=== PATIENT | female | born 2000 | race Caucasian/White ===

== ENCOUNTER 2018-03-17 00:24 | Inpatient (IN) | payer OTHER ==
[~2018-03-17] VITALS: Ht 160 cm; Wt 54.1 kg
--- NOTE | 2018-03-17 00:34 | PD ---
HPI Chief Complaint: Neck trauma Time Seen by Provider: 00:31 Travel History International Travel<30 days: No Contact w/Intl Traveler<30days: No Traveled to known affect area: No History of Present Illness HPI 17-year-old female transferred from [facility], accepted by the trauma service by Dr. Romo, for self-inflicted neck wound. According to the records the patient is a 17-year-old homeless female with history of bipolar disorder who presented to their facility after she cut herself in the left neck with a razor blade as well as took an overdose of [address] angiogram of the neck did not show any major vascular injuries, however does have extended area of gas throughout the fascial planes. The neck wound was repaired at their facility. Patient tells me that she wanted to kill herself. She is denying any physical complaints. She does not provide any further history. Extensive amount of records were sent from [facility] and were reviewed. Tylenol level was 14. Salicylate level was negative. [facility] Social History Tobacco Use: Yes Allergies-Medications (Allergen,Severity, Reaction): Coded Allergies: No Allergy Information Available (Unverified , 03/17/18) Reported Meds & Prescriptions Reported Meds & Active Scripts Active Reported Mariposa (Drospirenone-Ethinyl Estradiol) 3-0.02 Mg Tab 1 Tab PO DAILY Tamsulosin (Tamsulosin HCl) 0.4 Mg Cap 0.4 Mg HS Review of Systems Except as stated in HPI: all other systems reviewed are Neg Physical Exam Narrative GENERAL: Well-developed, thin, awake, keeps eyes closed, no apparent distress. SKIN: Focused skin assessment warm/dry. Left mid/lateral neck wound with several sutures in place. No surrounding warmth or erythema. No crepitus. HEAD: Atraumatic. Normocephalic. EYES: Pupils equal and round. No scleral icterus. No injection or drainage. ENT: No nasal bleeding or discharge. Mucous membranes pink and moist. NECK: Trachea midline. No JVD. Skin exam as above. CARDIOVASCULAR: Regular rate and rhythm. No murmur appreciated. RESPIRATORY: No accessory muscle use. Clear to auscultation. Breath sounds equal bilaterally. GASTROINTESTINAL: Abdomen soft, non-tender, nondistended. MUSCULOSKELETAL: No obvious deformities. No clubbing. No cyanosis. No edema. NEUROLOGICAL: Awake and alert. No obvious cranial nerve deficits. Motor grossly within normal limits. Normal speech. PSYCHIATRIC: Flat affect, poor eye contact, depressed mood. Data Data Last Documented VS Vital Signs Date Time Temp Pulse Resp B/P (MAP) Pulse Ox O2 Delivery O2 Flow Rate FiO2 03/17/18 05:44 70 20 101/50 (67) 99 Room Air 03/17/18 00:38 97.6 Orders Orders Complete Blood Count With Diff (03/17/18 00:35) Comprehensive Metabolic Panel (03/17/18 00:35) Beta Hcg (Quant/Titer) (03/17/18 00:35) Psych Screen (03/17/18 00:35) Drug Screen, Random Urine (03/17/18 00:35) Alcohol (Ethanol) (03/17/18 00:35) Salicylates (Aspirin) (03/17/18 00:35) Tylenol (Acetaminophen) (03/17/18 00:35) Cefazolin 2 Gm Premix (Ancef 2 Gm Premix (03/17/18 00:45) Diet Regular Basic (03/17/18 Breakfast) Admit Order (Ed Use Only) (03/17/18 ) Labs Laboratory Tests Test 03/17/18 00:45 White Blood Count 8.0 TH/MM3 Red Blood Count 3.97 MIL/MM3 Hemoglobin 11.7 GM/DL Hematocrit 33.8 % Mean Corpuscular Volume 85.1 FL Mean Corpuscular Hemoglobin 29.5 PG Mean Corpuscular Hemoglobin Concent 34.6 % Red Cell Distribution Width 12.9 % Platelet Count 160 TH/MM3 Mean Platelet Volume 8.2 FL Neutrophils (%) (Auto) 25.1 % Lymphocytes (%) (Auto) 62.3 % Monocytes (%) (Auto) 10.5 % Eosinophils (%) (Auto) 1.4 % Basophils (%) (Auto) 0.7 % Neutrophils # (Auto) 2.0 TH/MM3 Lymphocytes # (Auto) 5.0 TH/MM3 Monocytes # (Auto) 0.8 TH/MM3 Eosinophils # (Auto) 0.1 TH/MM3 Basophils # (Auto) 0.1 TH/MM3 CBC Comment AUTO DIFF Differential Total Cells Counted 100 Neutrophils % (Manual) 29 % Band Neutrophils % 1 % Lymphocytes % 38 % Monocytes % 11 % Neutrophils # (Manual) 2.4 TH/MM3 Differential Comment FINAL DIFF MANUAL Atypical Lymphocytes 21 % Platelet Estimate NORMAL Platelet Morphology Comment NORMAL Red Cell Morphology Comment NORMAL Blood Urea Nitrogen 9 MG/DL Creatinine 0.93 MG/DL Random Glucose 75 MG/DL Total Protein 7.1 GM/DL Albumin 2.9 GM/DL Calcium Level 7.7 MG/DL Alkaline Phosphatase 242 U/L Aspartate Amino Transf (AST/SGOT) 73 U/L Alanine Aminotransferase (ALT/SGPT) 87 U/L Total Bilirubin 0.6 MG/DL Sodium Level 142 MEQ/L Potassium Level 3.4 MEQ/L Chloride Level 108 MEQ/L Carbon Dioxide Level 22.8 MEQ/L Anion Gap 11 MEQ/L Estimat Glomerular Filtration Rate 78 ML/MIN Thyroid Stimulating Hormone 3rd Gen 10.100 uIU/ML Human Chorionic Gonadotropin, Quant LESS THAN 1 MIU/ML Salicylates Level 2.1 MG/DL Urine Opiates Screen NEG Acetaminophen Level LESS THAN 2.0 MCG/ML Urine Barbiturates Screen NEG Urine Amphetamines Screen NEG Urine Benzodiazepines Screen POS Urine Cocaine Screen NEG Urine Cannabinoids Screen NEG Ethyl Alcohol Level LESS THAN 3 MG/DL MDM Medical Decision Making Medical Screen Exam Complete: Yes Emergency Medical Condition: Yes Differential Diagnosis Self-inflicted neck wound, depression, suicidal ideation, coingestion, benzodiazepine overdose Narrative Course Vital signs reviewed. Shortly after the patient arrived to the emergency department I discussed the case with our on-call trauma surgeon Dr. Romo who accepted transfer of the patient. States that the patient can be cleared from a trauma standpoint to be admitted to psychiatry. I will do my own medical clearance with basic labs here in the emergency department. Labs reviewed and are remarkable for slight lymphocytosis and slight LFT elevation with AST 73, ALT 87. Patient tells me that she does not use IV drugs. Transaminitis can be followed up as an outpatient. Urine drug screen is positive for benzodiazepines. Tylenol, alcohol, and salicylate levels are negative. The patient is medically cleared for psychiatric evaluation and disposition by them. Diagnosis Primary Impression: Medical clearance for psychiatric admission Additional Impressions: Intentional self-harm Benzodiazepine overdose Qualified Codes: T42.4X2A - Poisoning by benzodiazepines, intentional self- harm, initial encounter Chris Gramajo MD March 17, 2018 00:34
[2018-03-17 00:38] VITALS: BP 99/58; PULSE 63; RESP 16; TEMP 97.6; O2SAT 99
[2018-03-17] MEDS ORDERED: ceFAZolin 2 GM PREMIX 50 ML IV ONE (00:45)
[2018-03-17 01:10] LABS: BASOPHIL # 0.1 TH/MM3 (0-0.2); BASOPHIL % 0.7 % (0.0-2.0); EOSINOPHIL # 0.1 TH/MM3 (0-0.4); EOSINOPHIL % 1.4 % (0.0-4.0); HEMATOCRIT 33.8 % (35.0-46.0); HEMOGLOBIN 11.7 GM/DL (11.6-15.3); LYMPH % 62.3 % (9.0-44.0); MEAN CELL VOLUME 85.1 FL (80.0-100.0); MEAN CORPUSCULAR HEMOGLOBIN 29.5 PG (27.0-34.0); MEAN CORPUSCULAR HGB CONC 34.6 % (32.0-36.0); MEAN PLATELET VOLUME 8.2 FL (7.0-11.0); MONO % 10.5 % (0.0-8.0); MONOCYTE # 0.8 TH/MM3 (0-0.9); NEUT % 25.1 % (16.0-70.0); PLATELET COUNT 160 TH/MM3 (150-450); RED BLOOD COUNT 3.97 MIL/MM3 (4.00-5.30); RED CELL DISTRIBUTION WIDTH 12.9 % (11.6-17.2)
[2018-03-17] MEDS ORDERED: LEVO50TA4 PO (01:20)
[2018-03-17] MEDS ORDERED: TAMS0.4C4 (01:20)
[2018-03-17] MEDS ORDERED: VENL75TA (01:20)
[2018-03-17] MEDS ORDERED: TOPI25TA7 PO (01:20)
[2018-03-17] MEDS ORDERED: DROS1TAB5 PO (01:20)
[2018-03-17] MEDS ORDERED: BUSP1TAB PO (01:20)
[2018-03-17 01:43] LABS: ACETAMINOPHEN LESS THAN 2.0 MCG/ML (10.0-30.0); ALBUMIN 2.9 GM/DL (3.4-5.0); ALKALINE PHOSPHATASE 242 U/L (45-117); ALT (GPT) 87 U/L (9-42); AST (GOT) 73 U/L (16-38); BICARBONATE 22.8 MEQ/L (21.0-32.0); BLOOD UREA NITROGEN 9 MG/DL (7-18); CALCIUM 7.7 MG/DL (8.5-10.1); CHLORIDE 108 MEQ/L (98-107); CREATININE 0.93 MG/DL (0.50-1.00); GLOMERULAR FILTRATION RATE 78 ML/MIN (>89); GLUCOSE,RANDOM 75 MG/DL (74-106); SODIUM (NA) 142 MEQ/L (136-145); TOTAL BILIRUBIN ADULT 0.6 MG/DL (0.2-1.0); TOTAL PROTEIN 7.1 GM/DL (6.4-8.2)
[2018-03-17 01:59] VITALS: BP 96/60; PULSE 63; RESP 16; O2SAT 100
[2018-03-17 02:00] LABS: ATYPICAL LYMPHOCYTES 21 % (0-0); BANDS 1 % (0-6); LYMPHOCYTES 38 % (9-44); MONOCYTES 11 % (0-8); NEUTROPHIL # MANUAL DIFF 2.4 TH/MM3 (1.8-7.7); POLYS (SEG NEUTROPHILS) 29 % (16-70)
[2018-03-17] MEDS ORDERED: DROS1TAB6 PO (03:31)
[2018-03-17 05:44] VITALS: BP 101/50; PULSE 70; RESP 20; O2SAT 99
--- NOTE | 2018-03-17 09:07 | HHI.HP ---
Provisional Diagnosis Admission Date 03/17/2018 [place] I. 1. Adjustment disorder with mixed disturbance of emotions and conduct Rule out some degree of depressive diathesis [place] II. 1. Borderline personality disorder Certification of Person's Competence To Provide Express and Informed Consent I have personally examined Kane Yañez , a person being served at [facility] on, March 17, 2018 08:49. Express and informed consent means consent voluntarily given in writing, by a competent person, after sufficient explanation and disclosure of the subject matter involved to enable the person to make a knowing and willful decision without any element of force, fraud, deceit, duress, or other form of constraint or coercion. This person is 18 years of age or older, is not now known to be incompetent to consent to treatment with a guardian advocate, and does not have a health care surrogate or proxy currently making medical treatment decisions. I have found this person to be one of the following: [] Competent to provide express and informed consent, as defined above, for voluntary admission to this facility and is competent to provide express and informed consent for treatment. He/she has the consistent capacity to make well reasoned, willful, and knowing decisions concerning his or her medical or mental health treatment. The person fully and consistently understands the purpose of the admission for examination/placement and is fully capable of personally exercising all rights assured [place] Incompetent to provide express and informed consent to voluntary admission, and this is incompetent to provide express and informed consent to treatment. The person must be transferred to involuntary status and a petition for a guardian advocate filed with the Circuit Court. [X] Refusing to provide express and informed consent to voluntary admission but is competent to provide express and informed consent for treatment. The person must be discharged or transferred to involuntary status. Form shall be completed within 24 hours of a person's arrival at the receiving facility and filed in the clinical record of each person: 1. Admitted on a voluntary basis 2. Permitted to provide express and informed consent to his/her own treatment 3. Allowed to transfer from involuntary to voluntary status 4. Prior to permitting a person to consent to his or her own treatment after having been previously found incompetent to consent to treatment. History of Present Illness Capacity: Has Capacity (To consent for medication/treatment) Psych Chief Complaint: Suicide attempt HPI Ms. Yañez is a 17-year-old female with a reported history of PTSD, anxiety, depression and borderline personality disorder who was accepted by the trauma service in transfer from [facility] under a [facility] act following a suicide attempt by cutting her throat and overdosing on Klonopin. Patient has been cleared by the trauma service. She was presented to me for admission overnight, but I was concerned about the possible long-acting sedative effects of the Klonopin and requested poison control be contacted. Per nurse, ED provider "chrised" the idea of contacting poison control. I have called poison control myself this morning, spoke with nurse specialist Kimber. Patient is known to poison control from initial presentation at [facility]. Poison control advises that as long as patient is awake and alert for 4 hours she is clear from their standpoint. Documentation from outside hospital reviewed. Reviewing the electronic medical record, I note this is patient's first visit to [facility]. Patient seen and examined with nurse. Chart reviewed. Case discussed with nurse. On my examination this morning, the patient is somewhat somnolent but arousable. She is able to participate in a fairly extensive psychiatric evaluation. She tells me that she cut herself and overdosed with suicidal intent because "I kept reaching out to people and nobody would fucking help me. " She reports that she has been planning suicide for weeks. She is displeased to have survived her attempt and reports ongoing suicidal ideation now, albeit without any specific plan. No reported urge to hurt self on an inpatient unit. She endorses ongoing low mood. No hypomanic or manic symptoms. Denies audiovisual hallucinations. She does have a significant trauma history and endorses some hyperarousal and nightmares. Very prominent cluster B personality traits noted. Remainder of the psychiatric ROS is negative. No acute physical complaints. Past psychiatric history: The patient reports a history of PTSD, anxiety and depression as well as borderline personality disorder. She is not currently under the care of a psychiatrist. She was psychiatrically admitted 4 months ago at [facility]. She has a history of previous suicidal overdoses as well as a history of nonsuicidal self-injurious behavior, namely cutting. She has never done any sort of psychotherapy, no history of DBT treatment. Family history: The patient reports a family history of depression. She denies a family history of suicide. Chemical dependency history: Patient reports a history of cocaine abuse. She does not report any current substance abuse and is in Narcotics Anonymous. Social history: Patient is homeless. She is single with no children. She has a grade 11 education. She has no income. She denies any access to guns or firearms. Review of Systems Except as stated in HPI: all other systems reviewed are Neg Past Family Social History Coded Allergies: No Allergy Information Available (Unverified , 03/17/18) Past Medical History No reported past medical history. See EMR. Reported Medications Drospirenone-Ethinyl Estradiol (Mariposa) 3-0.02 Mg Tab, 1 TAB PO DAILY, TAB 0 Refills 03/17/18 Tamsulosin (Tamsulosin) 0.4 Mg Cap, 0.4 MG HS for Manage Prostate Problems, #30 CAP 0 Refills 03/17/18 Buspirone (Buspirone) 7.5 Mg Tab, 7.5 MG PO BID for Anxiety, TAB 0 Refills 03/17/18 Venlafaxine (Effexor) 75 Mg Tab, 75 MG DAILY, #30 TAB 0 Refills 03/17/18 Levothyroxine (Levothyroxine) 50 Mcg Tab, 50 MCG PO DAILY for Thyroid, #30 TAB 0 Refills 03/17/18 Drospirenone-Ethinyl Estradiol (Drospirenone-Ethinyl Estradiol) 3-0.02 Mg Tab, 1 TAB PO DAILY for Control, #1 PACK 0 Refills 03/17/18 Topiramate (Topiramate) 25 Mg Tab, 25 MG PO BID for Control Seizures, #60 TAB 0 Refills 03/17/18 Medication list from outside hospital reviewed. Patient's Strengths (min. 2) In a monitored setting. Verbally fluent. Physical Exam Physical examination completed by ED provider. On my examination today, the patient appears to be in no acute physical distress. No motor abnormalities noted. Labs and vital signs reviewed: Vital Signs Vital Signs Date Time Temp Pulse Resp B/P (MAP) Pulse Ox O2 Delivery O2 Flow Rate FiO2 03/17/18 05:44 70 20 101/50 (67) 99 Room Air 03/17/18 00:38 97.6 I/O 03/17/18 03/17/18 03/18/18 08:00 16:00 00:00 Intake Total 100 ml Balance 100 ml Lab Results Test 03/17/18 00:45 White Blood Count 8.0 TH/MM3 Red Blood Count 3.97 MIL/MM3 Hemoglobin 11.7 GM/DL Hematocrit 33.8 % Mean Corpuscular Volume 85.1 FL Mean Corpuscular Hemoglobin 29.5 PG Mean Corpuscular Hemoglobin Concent 34.6 % Red Cell Distribution Width 12.9 % Platelet Count 160 TH/MM3 Mean Platelet Volume 8.2 FL Neutrophils (%) (Auto) 25.1 % Lymphocytes (%) (Auto) 62.3 % Monocytes (%) (Auto) 10.5 % Eosinophils (%) (Auto) 1.4 % Basophils (%) (Auto) 0.7 % Neutrophils # (Auto) 2.0 TH/MM3 Lymphocytes # (Auto) 5.0 TH/MM3 Monocytes # (Auto) 0.8 TH/MM3 Eosinophils # (Auto) 0.1 TH/MM3 Basophils # (Auto) 0.1 TH/MM3 CBC Comment AUTO DIFF Differential Total Cells Counted 100 Neutrophils % (Manual) 29 % Band Neutrophils % 1 % Lymphocytes % 38 % Monocytes % 11 % Neutrophils # (Manual) 2.4 TH/MM3 Differential Comment FINAL DIFF MANUAL Atypical Lymphocytes 21 % Platelet Estimate NORMAL Platelet Morphology Comment NORMAL Red Cell Morphology Comment NORMAL Blood Urea Nitrogen 9 MG/DL Creatinine 0.93 MG/DL Random Glucose 75 MG/DL Total Protein 7.1 GM/DL Albumin 2.9 GM/DL Calcium Level 7.7 MG/DL Alkaline Phosphatase 242 U/L Aspartate Amino Transf (AST/SGOT) 73 U/L Alanine Aminotransferase (ALT/SGPT) 87 U/L Total Bilirubin 0.6 MG/DL Sodium Level 142 MEQ/L Potassium Level 3.4 MEQ/L Chloride Level 108 MEQ/L Carbon Dioxide Level 22.8 MEQ/L Anion Gap 11 MEQ/L Estimat Glomerular Filtration Rate 78 ML/MIN Human Chorionic Gonadotropin, Quant LESS THAN 1 MIU/ML Salicylates Level 2.1 MG/DL Urine Opiates Screen NEG Acetaminophen Level LESS THAN 2.0 MCG/ML Urine Barbiturates Screen NEG Urine Amphetamines Screen NEG Urine Benzodiazepines Screen POS Urine Cocaine Screen NEG Urine Cannabinoids Screen NEG Ethyl Alcohol Level LESS THAN 3 MG/DL Transaminitis, hypokalemia and decreased GFR noted. Urine toxicology positive for benzodiazepines. Beta hCG at outside hospital was negative. Mental Status Examination Appearance: Appropriate Consciousness: Asleep (But arousable) Orientation: Person, Place (At least) Motor Activity: Other (No motor abnormalities noted. No signs of withdrawal noted.) Speech: Unremarkable Language: Adequate Fund of Knowledge: Adequate Attention and Concentration: Adequate Memory: Unremarkable (Grossly intact on clinical exam) Mood: Other (Depressed) Affect: Other (Restricted) Thought Process & Associations: Intact Thought Content: Appropriate Hallucination Type: None Delusion Type: None Suicidal Ideation: Yes Suicidal Plan: No Suicidal Intention: No (No reported urge to hurt self on an inpatient unit) Homicidal Ideation: No Homicidal Plan: No Homicidal Intention: No Insight: Poor Judgment: Poor Assessment & Plan Problem List: (1) Adjustment disorder with mixed disturbance of emotions and conduct ICD Codes: F43.25 - Adjustment disorder with mixed disturbance of emotions and conduct (2) Borderline personality disorder ICD Codes: F60.3 - Borderline personality disorder Assessment & Plan 17-year-old female with psychiatric history as detailed above who presents in transfer from outside hospital under a Pay[place] act following suicide attempts. On my examination today, the patient remains quite dysphoric and endorses ongoing suicidal ideation without plan at this point. Patient has a history of previous suicidal attempts and this coupled with her current dysphoria and borderline personality style elevated her ongoing risk for self-harm. The patient requires psychiatric admission at this time for safety, observation and stabilization. Admit inpatient to camera room. Patient is declining to consent for voluntary admission. Involuntary status. I have completed first opinion. Consult for second opinion. Patient retains capacity to consent for medications. I have left orders that the patient is not to be admitted to the psychiatric unit until she is awake and alert for 4 hours as recommended by Poison control. I will titrate patient's Effexor to 225mg daily to target dysphoria. Continue BuSpar and Topamax as ordered. CIWA with Ativan for any benzodiazepine withdrawal. Seizure precautions. Atarax as needed for anxiety. Benadryl as needed for sleep. Hospitalist consult to follow up on patient's presenting suicide attempt. Vitals every shift. Counselor to see. Collateral information. Disposition planning. Estimated length of stay: 5-7 days. Discharge Planning Pending further observation Request HC Surrog/Guard Advoc?: No Pascual Patel MD March 17, 2018 09:07
[2018-03-17] MEDS ORDERED: LORazepam 2 MG/ML VIAL IV PUSH PRN ×4 (09:15)
[2018-03-17] MEDS ORDERED: FLUMAZENIL 0.5 MG/5 ML VIAL IV PUSH PRN (09:15)
[2018-03-17] MEDS ORDERED: ACETAMINOPHEN 325 MG TAB PO PRN (09:15)
[2018-03-17] MEDS ORDERED: LORazepam 2 MG TAB PO PRN (09:15)
[2018-03-17] MEDS ORDERED: ALUMINUM/MAGNESIUM/SIMETH 30 ML CUP PO PRN (09:15)
[2018-03-17] MEDS ORDERED: MAGNESIUM HYDROXIDE SUSP 30 ML CUP PO PRN (09:15)
[2018-03-17] MEDS ORDERED: LORazepam 1 MG TAB PO PRN (09:15)
[2018-03-17] MEDS ORDERED: hydrOXYzine HCL 50 MG TAB PO PRN (09:15)
[2018-03-17 11:52] VITALS: BP 107/55
[2018-03-17 12:00] VITALS: BP 82/49; PULSE 90; RESP 17; TEMP 99.1; O2SAT 98
--- NOTE | 2018-03-17 13:52 | PD.CONS ---
HPI Service [facility] Hospitalists Consult Requested By Dr. Patel Reason for Consult S/P Klonopin OD and cutting neck. Transaminitis. Assist with medical management. Primary Care Physician Non-Staff Diagnoses: (1) Laceration of neck (2) Elevated LFTs (3) Benzodiazepine overdose (4) Intentional self-harm (5) Borderline personality disorder (6) Adjustment disorder with mixed disturbance of emotions and conduct History of Present Illness The patient is a 17 year old female admitted to inpatient psychiatry following Klonopin overdose and attempted suicide by cutting her own neck. Hospitalist consultation was requested for medical management. She denies headache, vision changes, cough, dyspnea. She reports pain at the laceration site on her neck. She states "I still want to ". Review of Systems Constitutional: DENIES: Fever, Chills, Night Sweats Eyes: DENIES: Blurred vision, Vision loss Ears, nose, mouth, throat: DENIES: Hearing loss Respiratory: DENIES: Cough, Wheezing, Sputum production, Shortness of breath Cardiovascular: DENIES: Chest pain, Palpitations, Dyspnea on Exertion, Lower Extremity Edema Gastrointestinal: DENIES: Abdominal pain, Constipation, Diarrhea, Nausea, Vomiting Genitourinary: DENIES: Urinary frequency, Urinary incontinence, Urgency, Hematuria, Dysuria, Nocturia Musculoskeletal: DENIES: Joint pain, Muscle aches Integumentary: DENIES: Pruritus, Rash Hematologic/lymphatic: DENIES: Bruising Neurologic: DENIES: Headache Psychiatric: COMPLAINS OF: Depression, Suicidal Ideation Past Family Social History Allergies: Coded Allergies: No Allergy Information Available (Unverified , 03/17/18) Past Medical History Depression Hypothyroidism Past Surgical History Thyroidectomy Reported Medications Tamsulosin (Tamsulosin HCl) 0.4 Mg Cap 0.4 Mg HS Buspirone (Buspirone HCl) 7.5 Mg Tab 7.5 Mg PO BID Effexor (Venlafaxine HCl) 75 Mg Tab 75 Mg DAILY Levothyroxine (Levothyroxine Sodium) 50 Mcg Tab 50 Mcg PO DAILY Drospirenone-Ethinyl Estradiol 3-0.02 Mg Tab 1 Tab PO DAILY Topiramate 25 Mg Tab 25 Mg PO BID Family History Mental health issues Social History History of crack cocaine abuse. States that she is trying to get clean. Rare alcohol use. Physical Exam Vital Signs Vital Signs Date Time Temp Pulse Resp B/P (MAP) Pulse Ox O2 Delivery O2 Flow Rate FiO2 03/17/18 12:00 99.1 90 17 82/49 (60) 98 03/17/18 11:52 97 18 107/55 (72) 99 03/17/18 05:44 70 20 101/50 (67) 99 Room Air 03/17/18 01:59 63 16 96/60 (72) 100 Room Air 03/17/18 01:26 63 16 03/17/18 00:38 97.6 63 16 99/58 (72) 99 Physical Exam Examined in the presence of WILSON Francis. GENERAL: This is a well-nourished, well-developed patient, in no apparent distress. SKIN: No rashes, ecchymoses or lesions. Cool and dry. Laceration on left lateral neck with sutures in place. Multiple linear scars on upper extremities. HEAD: Atraumatic. Normocephalic. No temporal or scalp tenderness. CARDIOVASCULAR: Regular rate and rhythm without murmurs, gallops, or rubs. RESPIRATORY: Clear to auscultation. Breath sounds equal bilaterally. No wheezes , rales, or rhonchi. GASTROINTESTINAL: Abdomen soft, non-tender, nondistended. No hepato-splenomegaly , or palpable masses. No guarding. MUSCULOSKELETAL: Extremities without clubbing, cyanosis, or edema. No joint tenderness, effusion, or edema noted. No calf tenderness. NEUROLOGICAL: Awake and alert. Normal speech. No focal deficits noted. Laboratory Laboratory Tests Test 03/17/18 00:45 White Blood Count 8.0 Red Blood Count 3.97 Hemoglobin 11.7 Hematocrit 33.8 Mean Corpuscular Volume 85.1 Mean Corpuscular Hemoglobin 29.5 Mean Corpuscular Hemoglobin Concent 34.6 Red Cell Distribution Width 12.9 Platelet Count 160 Mean Platelet Volume 8.2 Neutrophils (%) (Auto) 25.1 Lymphocytes (%) (Auto) 62.3 Monocytes (%) (Auto) 10.5 Eosinophils (%) (Auto) 1.4 Basophils (%) (Auto) 0.7 Neutrophils # (Auto) 2.0 Lymphocytes # (Auto) 5.0 Monocytes # (Auto) 0.8 Eosinophils # (Auto) 0.1 Basophils # (Auto) 0.1 CBC Comment AUTO DIFF Differential Total Cells Counted 100 Neutrophils % (Manual) 29 Band Neutrophils % 1 Lymphocytes % 38 Monocytes % 11 Neutrophils # (Manual) 2.4 Differential Comment FINAL DIFF MANUAL Atypical Lymphocytes 21 Platelet Estimate NORMAL Platelet Morphology Comment NORMAL Red Cell Morphology Comment NORMAL Blood Urea Nitrogen 9 Creatinine 0.93 Random Glucose 75 Total Protein 7.1 Albumin 2.9 Calcium Level 7.7 Alkaline Phosphatase 242 Aspartate Amino Transf (AST/SGOT) 73 Alanine Aminotransferase (ALT/SGPT) 87 Total Bilirubin 0.6 Sodium Level 142 Potassium Level 3.4 Chloride Level 108 Carbon Dioxide Level 22.8 Anion Gap 11 Estimat Glomerular Filtration Rate 78 Thyroid Stimulating Hormone 3rd Gen 10.100 Human Chorionic Gonadotropin, Quant LESS THAN 1 Salicylates Level 2.1 Urine Opiates Screen NEG Acetaminophen Level LESS THAN 2.0 Urine Barbiturates Screen NEG Urine Amphetamines Screen NEG Urine Benzodiazepines Screen POS Urine Cocaine Screen NEG Urine Cannabinoids Screen NEG Ethyl Alcohol Level LESS THAN 3 Result Diagram: 03/17/18 0045 03/17/18 0045 Assessment and Plan Assessment and Plan 1. Benzodiazepine overdose: Stable. No symptoms of overdose at this time. 2. Suicidal ideation/attempt: Neck wound sutured. Management per psychiatry. 3. Hypothyroidism: Patient states that she has been taking Synthroid 150mcg daily as prescribed. TSH is elevated. Increase dose of Synthroid. Recheck TSH in 4-6 weeks as outpatient. [facility] will sign off. Reconsult if needed. Problem Qualifiers (1) Benzodiazepine overdose: Qualified Codes: T42.4X2A - Poisoning by benzodiazepines, intentional self-harm , initial encounter Vitaliy Langley MD March 17, 2018 13:52
[2018-03-17] MEDS: TAMSULOSIN HCL 0.4 MG CAP PO SCH (20:35)
[2018-03-17] MEDS: TOPIRAMATE 100 MG TAB PO SCH (20:35)
[2018-03-17] MEDS: busPIRone HCL 10 MG TAB PO SCH (20:35)
[2018-03-17] MEDS ORDERED: diphenhydrAMINE HCL 50 MG CAP PO PRN (21:00)
[2018-03-18] MEDS ORDERED: LEVOTHYROXINE SODIUM 150 MCG TAB PO SCH ×2 (06:00)
[2018-03-18] MEDS: LEVOTHYROXINE SODIUM 75 MCG TAB PO SCH (06:10)
[2018-03-18] MEDS: LEVOTHYROXINE SODIUM 100 MCG TAB PO SCH (06:10)
[2018-03-18 06:13] VITALS: BP 91/45; PULSE 67; RESP 16; TEMP 98.1; O2SAT 99
[2018-03-18 08:43] LABS: ALBUMIN 2.7 GM/DL (3.4-5.0); AST (GOT) 66 U/L (16-38); BICARBONATE 24.7 MEQ/L (21.0-32.0); BLOOD UREA NITROGEN 16 MG/DL (7-18); CALCIUM 7.9 MG/DL (8.5-10.1); CHLORIDE 108 MEQ/L (98-107); CREATININE 0.92 MG/DL (0.50-1.00); GLOMERULAR FILTRATION RATE 79 ML/MIN (>89); GLUCOSE,RANDOM 91 MG/DL (74-106); SODIUM (NA) 140 MEQ/L (136-145)
[2018-03-18 08:44] LABS: CHOLESTEROL 194 MG/DL (120-200)
[2018-03-18 08:47] LABS: ALKALINE PHOSPHATASE 256 U/L (45-117); ALT (GPT) 71 U/L (9-42); CHOLESTEROL/ HDL RATIO 4.89 RATIO; HDL CHOLESTEROL 39.6 MG/DL (40.0-60.0); LDL CHOLESTEROL 104 MG/DL (0-99); TOTAL BILIRUBIN ADULT 0.7 MG/DL (0.2-1.0); TOTAL PROTEIN 6.7 GM/DL (6.4-8.2); TRIGLYCERIDES 251 MG/DL (42-150)
[2018-03-18] MEDS: TOPIRAMATE 100 MG TAB PO SCH ×2 (08:51→20:34)
[2018-03-18] MEDS: busPIRone HCL 10 MG TAB PO SCH ×2 (08:51→20:34)
[2018-03-18] MEDS: VENLAFAXINE HCL XR 75 MG CAP PO SCH (08:52)
[2018-03-18] MEDS: NICOTINE 21 MG/24 HR PATCH T-DERMAL SCH (08:54)
[2018-03-18] MEDS: REMOVE OLD PATCH T-DERMAL SCH (08:54)
[2018-03-18] MEDS ORDERED: [UNRECOGNIZED DRUG - OTHER] PO SCH (09:00)
[2018-03-18] MEDS ORDERED: DROSPIRENONE ETHINYL ESTRADIOL PO SCH (09:00)
[2018-03-18] MEDS ORDERED: diphenhydrAMINE HCL 25 MG CAP PO PRN (14:15)
[2018-03-18 16:21] LABS: HEMOGLOBIN A1C 4.6 % (4.3-6.0)
[2018-03-18 17:58] VITALS: BP 119/56; PULSE 84; RESP 18; TEMP 98; O2SAT 100
[2018-03-18] MEDS: TAMSULOSIN HCL 0.4 MG CAP PO SCH (20:34)
--- NOTE | 2018-03-18 22:11 | PD.PSY.CON ---
Provisional Diagnosis Admission Date March 17, 2018 at 08:49 [place] I. 1. Adjustment disorder with mixed disturbance of emotions and conduct Rule out some degree of depressive diathesis [place] II. 1. Borderline personality disorder History of Present Illness Service Psychiatry Consult Requested By Dr. Patel Reason for Consult Second opinion Primary Care Physician Non-Staff HPI Ms. Yañez is a 17-year-old female with a reported history of PTSD, anxiety, depression and borderline personality disorder who was accepted by the trauma service in transfer from [facility] under a [facility] act following a suicide attempt by cutting her throat and overdosing on Klonopin. Patient has been cleared by the trauma service. She was presented to me for admission overnight, but I was concerned about the possible long-acting sedative effects of the Klonopin and requested poison control be contacted. Per nurse, ED provider "chrised" the idea of contacting poison control. I have called poison control myself this morning, spoke with nurse specialist Kimber. Patient is known to poison control from initial presentation at [facility]. Poison control advises that as long as patient is awake and alert for 4 hours she is clear from their standpoint. Documentation from outside hospital reviewed. Reviewing the electronic medical record, I note this is patient's first visit to [facility]. Patient seen and examined with nurse. Chart reviewed. Case discussed with nurse. On my examination this morning, the patient is somewhat somnolent but arousable. She is able to participate in a fairly extensive psychiatric evaluation. She tells me that she cut herself and overdosed with suicidal intent because "I kept reaching out to people and nobody would fucking help me. " She reports that she has been planning suicide for weeks. She is displeased to have survived her attempt and reports ongoing suicidal ideation now, albeit without any specific plan. No reported urge to hurt self on an inpatient unit. She endorses ongoing low mood. No hypomanic or manic symptoms. Denies audiovisual hallucinations. She does have a significant trauma history and endorses some hyperarousal and nightmares. Very prominent cluster B personality traits noted. Remainder of the psychiatric ROS is negative. No acute physical complaints. Past psychiatric history: The patient reports a history of PTSD, anxiety and depression as well as borderline personality disorder. She is not currently under the care of a psychiatrist. She was psychiatrically admitted 4 months ago at [facility]. She has a history of previous suicidal overdoses as well as a history of nonsuicidal self-injurious behavior, namely cutting. She has never done any sort of psychotherapy, no history of DBT treatment. Family history: The patient reports a family history of depression. She denies a family history of suicide. Chemical dependency history: Patient reports a history of cocaine abuse. She does not report any current substance abuse and is in Narcotics Anonymous. Social history: Patient is homeless. She is single with no children. She has a grade 11 education. She has no income. She denies any access to guns or firearms. 03/18/18 - Second opinion Patient is a 17 y/o woman, single, unemployed, homeless, with past psychiatric history of depression, anxiety, PTSD, borderline personality disorder, prior psychiatric admissions, prior suicide attempts via overdose, history of cutting who was presented to the ED after suicide attempts via self inflicted neck laceration, overdose on 90+ 0.5mg clonazepam tablets who was admitted to the inpatient psychiatry unit for further evaluation and management. Patient was found sitting on hosptial bed, calm and cooperative, states that she had tried to cut her neck and took and overdose of clonazepam as well as attempted to hang herself in a public restroom which she aborted after feeling she was losing consciousness when attempting to hang herself and called her boyfriend who contacted EMS. She states having outpatient follow up and has been compliant with medications; denies SI at this time, requesting discharge and states being worried about her bills. Currently she reports feeling depressed, denies SI, HI, AVH or delusions at this time. Appears to minimize recent suicide attempt. Past Family Social History Coded Allergies: No Allergy Information Available (Unverified , 03/17/18) Reported Medications Drospirenone-Ethinyl Estradiol ([place]) 3-0.02 Mg Tab, 1 TAB PO DAILY, TAB 0 Refills 03/17/18 Tamsulosin (Tamsulosin) 0.4 Mg Cap, 0.4 MG HS for Manage Prostate Problems, #30 CAP 0 Refills 03/17/18 Discontinued Reported Medications Buspirone (Buspirone) 7.5 Mg Tab, 7.5 MG PO BID for Anxiety, TAB 0 Refills 03/17/18 Venlafaxine (Effexor) 75 Mg Tab, 75 MG DAILY, #30 TAB 0 Refills 03/17/18 Levothyroxine (Levothyroxine) 50 Mcg Tab, 50 MCG PO DAILY for Thyroid, #30 TAB 0 Refills 03/17/18 Drospirenone-Ethinyl Estradiol (Drospirenone-Ethinyl Estradiol) 3-0.02 Mg Tab, 1 TAB PO DAILY for Control, #1 PACK 0 Refills 03/17/18 Topiramate (Topiramate) 25 Mg Tab, 25 MG PO BID for Control Seizures, #60 TAB 0 Refills 03/17/18 Current Medications Medications (Trade) Dose Ordered Sig/Alverto Route Start Time Stop Time Status Last Admin (Flomax) 0.4 mg HS PO 03/17/18 21:00 03/18/18 20:34 Patient Own Medication PT OWN MED: DROSPIRENONE 3MG-ETH... DAILY PO 03/18/18 09:00 Future Hold (Effexor Xr) 225 mg DAILY PO 03/18/18 09:00 03/18/18 08:52 (Buspar) 30 mg Q12HR PO 03/17/18 21:00 03/18/18 20:34 (Topamax) 100 mg Q12HR PO 03/17/18 21:00 03/18/18 20:34 (Romazicon Inj) 0.2 mg Q1M PRN IV PUSH 03/17/18 09:15 (Ativan) 1 mg Q4H PRN PO 03/17/18 09:15 (Ativan Inj) 1 mg Q4H PRN IV PUSH 03/17/18 09:15 (Ativan) 2 mg Q2H PRN PO 03/17/18 09:15 (Ativan Inj) 2 mg Q2H PRN IV PUSH 03/17/18 09:15 (Ativan Inj) 2 mg Q1H PRN IV PUSH 03/17/18 09:15 (Ativan Inj) 2 mg Q15M PRN IV PUSH 03/17/18 09:15 (Tylenol) 650 mg Q4H PRN PO 03/17/18 09:15 (Milk Of Magnesia Liq) 30 ml DAILY PRN PO 03/17/18 09:15 (Mag-Al Plus Susp Liq) 30 ml Q6H PRN PO 03/17/18 09:15 (Habitrol 21 Mg Patch.24 Hr) 1 patch DAILY T-DERMAL 03/18/18 09:00 03/18/18 08:54 Miscellaneous Information 1 DAILY T-DERMAL 03/18/18 09:00 (Benadryl) 50 mg HS PRN PO 03/17/18 21:00 (Synthroid) 100 mcg DAILY@0600 PO 03/18/18 06:00 03/18/18 06:10 (Synthroid) 75 mcg DAILY@0600 PO 03/18/18 06:00 03/18/18 06:10 (Benadryl) 25 mg Q6H PRN PO 03/18/18 14:15 Patient's Strengths (min. 2) In a monitored setting. Verbally fluent. Physical Exam Vital Signs Vital Signs Date Time Temp Pulse Resp B/P (MAP) Pulse Ox O2 Delivery O2 Flow Rate FiO2 03/18/18 17:58 98.0 84 18 119/56 (77) 100 03/17/18 05:44 Room Air Lab Results Test 03/18/18 07:24 Blood Urea Nitrogen 16 MG/DL Creatinine 0.92 MG/DL Random Glucose 91 MG/DL Total Protein 6.7 GM/DL Albumin 2.7 GM/DL Calcium Level 7.9 MG/DL Alkaline Phosphatase 256 U/L Aspartate Amino Transf (AST/SGOT) 66 U/L Alanine Aminotransferase (ALT/SGPT) 71 U/L Total Bilirubin 0.7 MG/DL Sodium Level 140 MEQ/L Potassium Level 3.3 MEQ/L Chloride Level 108 MEQ/L Carbon Dioxide Level 24.7 MEQ/L Anion Gap 7 MEQ/L Estimat Glomerular Filtration Rate 79 ML/MIN Hemoglobin A1c 4.6 % Triglycerides Level 251 MG/DL Cholesterol Level 194 MG/DL LDL Cholesterol 104 MG/DL HDL Cholesterol 39.6 MG/DL Cholesterol/HDL Ratio 4.89 RATIO Mental Status Examination Appearance: Appropriate Consciousness: Asleep (But arousable) Orientation: Person, Place (At least) Motor Activity: Other (No motor abnormalities noted. No signs of withdrawal noted.) Speech: Unremarkable Language: Adequate Fund of Knowledge: Adequate Attention and Concentration: Adequate Memory: Unremarkable (Grossly intact on clinical exam) Mood: Other (Depressed) Affect: Other (Restricted) Thought Process & Associations: Intact Thought Content: Appropriate Hallucination Type: None Delusion Type: None Suicidal Ideation: Yes Suicidal Plan: No Suicidal Intention: No (No reported urge to hurt self on an inpatient unit) Homicidal Ideation: No Homicidal Plan: No Homicidal Intention: No Insight: Poor Judgment: Poor Assessment & Plan Problem List: (1) Adjustment disorder with mixed disturbance of emotions and conduct ICD Codes: F43.25 - Adjustment disorder with mixed disturbance of emotions and conduct (2) Borderline personality disorder ICD Codes: F60.3 - Borderline personality disorder Assessment & Plan I have seen and examined this patient, reviewed the documentation, and I agree and concur with Dr. Patel's assessment and plan. Request HC Surrog/Guard Advoc?: No Roni Harper MD March 18, 2018 22:11
[2018-03-19] MEDS: LEVOTHYROXINE SODIUM 75 MCG TAB PO SCH (06:01)
[2018-03-19] MEDS: LEVOTHYROXINE SODIUM 100 MCG TAB PO SCH (06:01)
[2018-03-19 06:12] VITALS: BP 90/53; PULSE 70; RESP 16; TEMP 97.9; O2SAT 99
[2018-03-19] MEDS: REMOVE OLD PATCH T-DERMAL SCH (09:00)
[2018-03-19] MEDS: NICOTINE 21 MG/24 HR PATCH T-DERMAL SCH (09:00)
[2018-03-19] MEDS: TOPIRAMATE 100 MG TAB PO SCH ×2 (09:13→20:40)
[2018-03-19] MEDS: busPIRone HCL 10 MG TAB PO SCH ×2 (09:13→20:40)
[2018-03-19] MEDS: VENLAFAXINE HCL XR 75 MG CAP PO SCH (09:13)
--- NOTE | 2018-03-19 18:23 | HHI.PYPN ---
Subjective Chief Complaint: Suicide attempt Remarks Patient seen for follow-up, chart reviewed. Discussion nursing staff reported the patient less evening has started hitting her head on the floor when she was not given a hard cover book which is not allowed on the unit. Patient was found eating lunch noted B, cooperative. Patient states that she is feeling "better" eating and drinking well, no problems with bowel movement. Patient denies any side effects to medications. Patient states that she is feeling less depressed, denying any suicide ideations today. She states having spoken with her father over the phone with did not go well. Patient states she plans on returning back to her boyfriend's home upon discharge. Review of Systems Except as stated in HPI: all other systems reviewed are Neg Mental Status Examination Appearance: Appropriate Consciousness: Asleep (But arousable) Orientation: Person, Place (At least) Motor Activity: Other (No motor abnormalities noted. No signs of withdrawal noted.) Speech: Unremarkable Language: Adequate Fund of Knowledge: Adequate Attention and Concentration: Adequate Memory: Unremarkable (Grossly intact on clinical exam) Mood: Good, Other (Depressed) Affect: Other (Restricted) Thought Process & Associations: Intact Thought Content: Appropriate Hallucination Type: None Delusion Type: None Suicidal Ideation: Yes (denies today) Suicidal Plan: No Suicidal Intention: No (No reported urge to hurt self on an inpatient unit) Homicidal Ideation: No Homicidal Plan: No Homicidal Intention: No Insight: Poor Judgment: Poor Results Vitals/IOs Vital Signs Date Time Temp Pulse Resp B/P (MAP) Pulse Ox O2 Delivery O2 Flow Rate FiO2 03/19/18 06:12 97.9 70 16 90/53 (65) 99 03/17/18 05:44 Room Air Assessment & Plan Problem List: (1) Adjustment disorder with mixed disturbance of emotions and conduct ICD Codes: F43.25 - Adjustment disorder with mixed disturbance of emotions and conduct (2) Borderline personality disorder ICD Codes: F60.3 - Borderline personality disorder Assessment & Plan Patient this time denies any suicide ideation continues to have poor impulse control which may be due to character pathology from borderline personality disorder. Patient reports feeling less depressed. Continue current treatment. Continue monitor mood and behavior. Discharge planning in progress. Justification for Cont. Inpt. At risk of further decompensation a lower level care. Discharge Planning Patient return to boyfriend's residence upon discharge. Request HC Surrog/Guard Advoc?: No Roni Harper MD Mar 19, 2018 18:23
[2018-03-19 18:57] VITALS: BP 102/54; PULSE 81; RESP 17; TEMP 97.9; O2SAT 99
[2018-03-19] MEDS: TAMSULOSIN HCL 0.4 MG CAP PO SCH (20:40)
[2018-03-20] MEDS: LEVOTHYROXINE SODIUM 75 MCG TAB PO SCH (05:33)
[2018-03-20] MEDS: LEVOTHYROXINE SODIUM 100 MCG TAB PO SCH (05:33)
[2018-03-20 06:20] VITALS: BP 92/51; PULSE 71; RESP 16; TEMP 98; O2SAT 100
[2018-03-20] MEDS: NICOTINE 21 MG/24 HR PATCH T-DERMAL SCH (08:02)
[2018-03-20] MEDS: TOPIRAMATE 100 MG TAB PO SCH ×2 (08:03→20:29)
[2018-03-20] MEDS: VENLAFAXINE HCL XR 75 MG CAP PO SCH (08:03)
[2018-03-20] MEDS: busPIRone HCL 10 MG TAB PO SCH ×2 (08:03→20:26)
[2018-03-20] MEDS: REMOVE OLD PATCH T-DERMAL SCH (08:03)
--- NOTE | 2018-03-20 15:08 | HHI.PYPN ---
Subjective Chief Complaint: Suicide attempt Remarks Patient was seen and case discussed with nursing. We discussed her suicide attempt. Patient says this was a spontaneous unplanned attempt that initially began with thoughts of cutting. Patient says she has battled with suicidal ideation for years. Today she notices an improvement in mood and she denies any suicidal or homicidal ideation intent or plan. Safety plan has been reviewed. He is eating and sleeping well and compliant with her medications. She made a request to move to another unit but given her recent admissions and actions she will remain in close observation here. Mental Status Examination Appearance: Appropriate Consciousness: Asleep (But arousable) Orientation: Person, Place (At least) Motor Activity: Other (No motor abnormalities noted. No signs of withdrawal noted.) Speech: Unremarkable Language: Adequate Fund of Knowledge: Adequate Attention and Concentration: Adequate Memory: Unremarkable (Grossly intact on clinical exam) Mood: Other (Depressed) Affect: Other (Restricted) Thought Process & Associations: Intact Thought Content: Appropriate Hallucination Type: None Delusion Type: None Suicidal Ideation: No Suicidal Plan: No Suicidal Intention: No (No reported urge to hurt self on an inpatient unit) Homicidal Ideation: No Homicidal Plan: No Homicidal Intention: No Insight: Poor Judgment: Poor Results Vitals/IOs Vital Signs Date Time Temp Pulse Resp B/P (MAP) Pulse Ox O2 Delivery O2 Flow Rate FiO2 03/20/18 06:20 98.0 71 16 92/51 (65) 100 03/17/18 05:44 Room Air Assessment & Plan Problem List: (1) Adjustment disorder with mixed disturbance of emotions and conduct ICD Codes: F43.25 - Adjustment disorder with mixed disturbance of emotions and conduct (2) Borderline personality disorder ICD Codes: F60.3 - Borderline personality disorder Assessment & Plan Continue current treatment plan Justification for Cont. Inpt. Patient would decompensate in a less restrictive setting Request HC Surrog/Guard Advoc?: No Willy rTammell DO Mar 20, 2018 15:08
[2018-03-20 18:00] VITALS: BP 111/63; PULSE 101; RESP 17; TEMP 98.2; O2SAT 100
[2018-03-20] MEDS: TAMSULOSIN HCL 0.4 MG CAP PO SCH (20:26)
[2018-03-21 06:16] VITALS: BP 90/55; PULSE 104; RESP 18; TEMP 98.1; O2SAT 100
[2018-03-21] MEDS: LEVOTHYROXINE SODIUM 75 MCG TAB PO SCH (06:34)
[2018-03-21] MEDS: LEVOTHYROXINE SODIUM 100 MCG TAB PO SCH (06:34)
[2018-03-21] MEDS: REMOVE OLD PATCH T-DERMAL SCH (09:00)
[2018-03-21] MEDS: TOPIRAMATE 100 MG TAB PO SCH ×2 (09:14→20:26)
[2018-03-21] MEDS: NICOTINE 21 MG/24 HR PATCH T-DERMAL SCH (09:15)
[2018-03-21] MEDS: VENLAFAXINE HCL XR 75 MG CAP PO SCH (09:15)
[2018-03-21] MEDS: busPIRone HCL 10 MG TAB PO SCH ×2 (09:15→20:27)
--- NOTE | 2018-03-21 10:16 | HHI.PYPN ---
Subjective Chief Complaint: Suicide attempt Remarks Patient was seen and case discussed with nursing. Patient continues to improve. She is bright and cheerful during the interview. She is perseverative on moving to a 2600 unit. Patient says she has had no ideation or impulse to cut. She denies suicidal or homicidal ideation intent or plan. The productive visit with her boyfriend Mental Status Examination Appearance: Appropriate Consciousness: Asleep (But arousable) Orientation: Person, Place (At least) Motor Activity: Other (No motor abnormalities noted. No signs of withdrawal noted.) Speech: Unremarkable Language: Adequate Fund of Knowledge: Adequate Attention and Concentration: Adequate Memory: Unremarkable (Grossly intact on clinical exam) Mood: Good, Other (Depressed) Affect: Other (Restricted) Thought Process & Associations: Intact Thought Content: Appropriate Hallucination Type: None Delusion Type: None Suicidal Ideation: No Suicidal Plan: No Suicidal Intention: No (No reported urge to hurt self on an inpatient unit) Homicidal Ideation: No Homicidal Plan: No Homicidal Intention: No Insight: Poor Judgment: Poor Results Vitals/IOs Vital Signs Date Time Temp Pulse Resp B/P (MAP) Pulse Ox O2 Delivery O2 Flow Rate FiO2 03/21/18 06:16 98.1 104 18 90/55 (67) 100 Assessment & Plan Problem List: (1) Adjustment disorder with mixed disturbance of emotions and conduct ICD Codes: F43.25 - Adjustment disorder with mixed disturbance of emotions and conduct (2) Borderline personality disorder ICD Codes: F60.3 - Borderline personality disorder Assessment & Plan Patient would decompensate in a less restrictive setting Justification for Cont. Inpt. Continue current treatment plan Request HC Surrog/Guard Advoc?: No Willy Trammell DO Mar 21, 2018 10:16
[2018-03-21] MEDS: TAMSULOSIN HCL 0.4 MG CAP PO SCH (20:27)
[2018-03-22 06:32] VITALS: BP 100/51; PULSE 71; RESP 18; TEMP 98.6
[2018-03-22] MEDS: LEVOTHYROXINE SODIUM 100 MCG TAB PO SCH (06:40)
[2018-03-22] MEDS: LEVOTHYROXINE SODIUM 75 MCG TAB PO SCH (06:40)
[2018-03-22] MEDS: NICOTINE 21 MG/24 HR PATCH T-DERMAL SCH (08:47)
[2018-03-22] MEDS: TOPIRAMATE 100 MG TAB PO SCH (08:48)
[2018-03-22] MEDS: busPIRone HCL 10 MG TAB PO SCH (08:48)
[2018-03-22] MEDS: VENLAFAXINE HCL XR 75 MG CAP PO SCH (08:48)
[2018-03-22] MEDS: REMOVE OLD PATCH T-DERMAL SCH (08:52)
--- NOTE | 2018-03-22 09:49 | PD.TTN ---
Patient Problems 1. Discharge planning 2. Medication compliance 3. Knowledge deficit 4. Lack of coping skills Progress Toward Goals Provider Present: Dr. Brittni Harper Provider Input: Pt meets criteria for discharge Psychiatric Counselors Present: Amauri Mayo Jr., [facility] Psych Therapist Input: Pt appears stable, oriented and ready for discharge. Pt will return to her boyfriends house upon discharge Group Spec/RT/OT/GUNN Present: ASTER Londono Group Spec/RT/OT/GUNN Input: Attends groups Amauri Mayo Jr, [employer] Mar 22, 2018 09:49
[2018-03-22] MEDS ORDERED: VENL225T PO (10:55)
[2018-03-22] MEDS ORDERED: TOPI100 PO (10:55)
[2018-03-22] MEDS ORDERED: LEVO.1 PO (10:55)
[2018-03-22] MEDS ORDERED: BUSP30TA PO (10:55)
[2018-03-22] MEDS ORDERED: LEVO.075 PO (10:55)
[2018-03-22] MEDS ORDERED: TAMS0.4C4 PO (10:55)
--- NOTE | 2018-03-22 18:44 | HHI.DS ---
Psychiatry Discharge Summary Inpatient Psychiatric care?: Yes Advance Directive: No Reason Not Provided: DOESNT HAVE ONE Mental Health AdvanceDirective: No Health Care Proxy: No Admission Admission Date March 17, 2018 at 08:49 Admission Diagnosis: (1) Adjustment disorder with mixed disturbance of emotions and conduct ICD Code: F43.25 - Adjustment disorder with mixed disturbance of emotions and conduct Brief History Ms. Yañez is a 17-year-old female with a reported history of PTSD, anxiety, depression and borderline personality disorder who was accepted by the trauma service in transfer from [facility] under a [place] act following a suicide attempt by cutting her throat and overdosing on Klonopin. Patient has been cleared by the trauma service. She was presented to me for admission overnight, but I was concerned about the possible long-acting sedative effects of the Klonopin and requested poison control be contacted. Per nurse, ED provider "chrised" the idea of contacting poison control. I have called poison control myself this morning, spoke with nurse specialist Kimber. Patient is known to poison control from initial presentation at [place]. Poison control advises that as long as patient is awake and alert for 4 hours she is clear from their standpoint. Documentation from outside hospital reviewed. Reviewing the electronic medical record, I note this is patient's first visit to [place]. Patient seen and examined with nurse. Chart reviewed. Case discussed with nurse. On my examination this morning, the patient is somewhat somnolent but arousable. She is able to participate in a fairly extensive psychiatric evaluation. She tells me that she cut herself and overdosed with suicidal intent because "I kept reaching out to people and nobody would fucking help me. " She reports that she has been planning suicide for weeks. She is displeased to have survived her attempt and reports ongoing suicidal ideation now, albeit without any specific plan. No reported urge to hurt self on an inpatient unit. She endorses ongoing low mood. No hypomanic or manic symptoms. Denies audiovisual hallucinations. She does have a significant trauma history and endorses some hyperarousal and nightmares. Very prominent cluster B personality traits noted. Remainder of the psychiatric ROS is negative. No acute physical complaints. Past psychiatric history: The patient reports a history of PTSD, anxiety and depression as well as borderline personality disorder. She is not currently under the care of a psychiatrist. She was psychiatrically admitted [address] [facility]. She has a history of previous suicidal overdoses as well as a history of nonsuicidal self-injurious behavior, namely cutting. She has never done any sort of psychotherapy, no history of DBT treatment. Family history: The patient reports a family history of depression. She denies a family history of suicide. Chemical dependency history: Patient reports a history of cocaine abuse. She does not report any current substance abuse and is in Narcotics Anonymous. Social history: Patient is homeless. She is single with no children. She has a grade 11 education. She has no income. She denies any access to guns or firearms. 03/18/18 - Second opinion Patient is a 17 y/o woman, single, unemployed, homeless, with past psychiatric history of depression, anxiety, PTSD, borderline personality disorder, prior psychiatric admissions, prior suicide attempts via overdose, history of cutting who was presented to the ED after suicide attempts via self inflicted neck laceration, overdose on 90+ 0.5mg clonazepam tablets who was admitted to the inpatient psychiatry unit for further evaluation and management. Patient was found sitting on hosptial bed, calm and cooperative, states that she had tried to cut her neck and took and overdose of clonazepam as well as attempted to hang herself in a public restroom which she aborted after feeling she was losing consciousness when attempting to hang herself and called her boyfriend who contacted EMS. She states having outpatient follow up and has been compliant with medications; denies SI at this time, requesting discharge and states being worried about her bills. Currently she reports feeling depressed, denies SI, HI, AVH or delusions at this time. Appears to minimize recent suicide attempt. Tobacco Use In Past 30 Days: 5 or More Cigarettes/Day Alcohol Use: Never Hospital Course Patient is a 17 y/o woman, single, unemployed, homeless, with past psychiatric history of depression, anxiety, PTSD, borderline personality disorder, prior psychiatric admissions, prior suicide attempts via overdose, history of cutting who was presented to the ED after suicide attempts via self inflicted neck laceration, overdose on 90+ 0.5mg clonazepam tablets who was admitted to the inpatient psychiatry unit for further evaluation and management. Patient was continued on venlafaxine 225mg daily, buspirone 30mg PO BID, and continued on her medication regimen for chronic medical issues which she responded well to with no reported adverse drug reactions. Patient noted throughout admission to have improvement in mood, with no behavioral disturbances since admission and no longer endorsed suicidal ideation. Patient was cooperative with staff, no behavioral disturbances and tolerating treatment well. Patient also noted with adequate care of personal hygiene and caring for self. Patient participated in groups and activities, had visitation from significant other during admission. Patient did not endorse any perceptual disturbances or delusions nor had any suicidal or homicidal ideations prior to discharge. Upon discharge patient reported feeling good denied any perceptual disturbances nor suicidal ideations or homicidal ideations. Patient was found to be future oriented, motivated to continue treatment and safety plan was discussed with patient. Patient was visited by progressive care unit registered nurse who will also continue to follow patient and arranged to have patient discharged for intake at domestic violence correction. Patient; denies SI, HI, AVH or delusions. Supportive psychotherapy provided. Suicide and violence risk assessment on day of discharge both suggest lower imminent risk, and the patient 's level of function is adequate for planned level of outpatient care. Patient has maximized benefit from this inpatient psychiatric hospital stay and to return to psychiatric emergency room for any concerning psychiatric symptoms. Patient agrees with plan. Results Blood Pressure 100 / 51 Vital Signs Date Time Temp Pulse Resp B/P (MAP) Pulse Ox O2 Delivery O2 Flow Rate FiO2 03/22/18 06:32 98.6 71 18 100/51 (67) 03/21/18 06:16 100 Laboratory Results Test 03/18/18 07:24 Cholesterol Level 194 MG/DL (120-200) HDL Cholesterol 39.6 MG/DL (40.0-60.0) Hemoglobin A1c 4.6 % (4.3-6.0) LDL Cholesterol 104 MG/DL (0-99) Triglycerides Level 251 MG/DL (42-150) Summary of Procedures none Pending results at discharge: No Medications # of Antipsychotic meds at D/C: 0 Approp Antipsych med options 1 - Minimum of three failed multiple trials of monotherapy. 2 - Documented plan to taper to monotherapy due to previous use of multiple meds OR cross-taper in progress at D/C. 3 - Documentation of augmentation of Clozapine. 4 - Justification other than those listed in allowable values 1-3, document here : Discharge Discharge Date: Mar 22, 2018 Discharge Diagnosis: (1) Adjustment disorder with mixed disturbance of emotions and conduct ICD Code: F43.25 - Adjustment disorder with mixed disturbance of emotions and conduct Pt Condition on Discharge: Stable Discharge Disposition: Discharge Home Discharge Instructions Diet Instructions: As Tolerated, No Restrictions Activities you can perform: Regular-No Restrictions Scheduled Appointment: Rajinder Herrera [facility] Appointment Date: Mar 23, 2018 Appointment Time: 8a-3p Discharge Time > 30 minutes Mental Status Examination Appearance: Appropriate Consciousness: Alert Orientation: Person, Place, Date/Time Speech: Unremarkable Language: Adequate Fund of Knowledge: Adequate Attention and Concentration: Adequate Memory: Unremarkable (Grossly intact on clinical exam) Mood: Appropriate, Good Affect: Appropriate Thought Process & Associations: Intact Thought Content: Appropriate Hallucination Type: None Delusion Type: None Suicidal Ideation: No Suicidal Plan: No Suicidal Intention: No (No reported urge to hurt self on an inpatient unit) Homicidal Ideation: No Homicidal Plan: No Homicidal Intention: No Insight: Fair Judgment: Impulsive Discharge/Advance Care Plan Health Problems: (1) Adjustment disorder with mixed disturbance of emotions and conduct (2) Borderline personality disorder Goals to promote your health * To prevent worsening of your condition and complications * To maintain your health at the optimal level Directions to meet your goals Take your medications as prescribed Follow your dietary instruction Follow activity as directed Keep your appointments as scheduled Take your immunizations and boosters as scheduled If your symptoms worsen call your PCP, if no PCP go to Urgent Care Center or Emergency Room For 24/ questions related to your inpatient stay or results of tests pending at discharge, please contact Dr. Roni Harper at Smoking is Dangerous to Your Health. Avoid second hand smoking Roni Harper MD Mar 22, 2018 18:44
== END 2018-03-22 13:15 | disposition home or self-care (01) | DRG 882 ==
LOC: NEPC 00:24 → NEDA 08:49 → H270 11:50
PROVIDERS: ADMIT Student in an Organized Health Care Education/Training Program; ATTEND Student in an Organized Health Care Education/Training Program
DX: F43.25 Adjustment disorder with mixed disturbance of emotions and conduct (principal); R45.851 Suicidal ideations; S11.91XA Laceration without foreign body of unspecified part of neck, initial encounter; F60.3 Borderline personality disorder; F43.10 Post-traumatic stress disorder, unspecified; Z59.0 Homelessness; E03.9 Hypothyroidism, unspecified; R74.0 Nonspecific elevation of levels of transaminase and lactic acid dehydrogenase [LDH]; F14.10 Cocaine abuse, uncomplicated; F32.9 Major depressive disorder, single episode, unspecified; F41.9 Anxiety disorder, unspecified; Z72.0 Tobacco use; Z91.5 Personal history of self-harm; T42.4X2A Poisoning by benzodiazepines, intentional self-harm, initial encounter; W26.8XXA Contact with other sharp object(s), not elsewhere classified, initial encounter
CPT/HCPCS: 80053; 80061; 80307; 83036; 84443; 84702; 85007; 85027; 96365; J0690